=== PATIENT | female | born 1995 | race African-American/Black ===

== ENCOUNTER 2023-04-21 22:16 | Observation (INO) | payer MEDICAID ==
[2023-04-21] MEDS ORDERED: PREN-96 OR (22:41)
[2023-04-21] MEDS ORDERED: TERBUTALINE SULFATE 1 MG/ML 1ML VIAL SC ONE (23:39)
[2023-04-21] MEDS ORDERED: TERBUTALINE SULFATE 1 MG/ML 1ML VIAL SC SCH (23:45)
== END 2023-04-22 01:52 | disposition home or self-care (01) ==
LOC: LDRP 22:16
PROVIDERS: ADMIT Obstetrics & Gynecology; ATTEND Obstetrics & Gynecology
DX: O26.892 Other specified pregnancy related conditions, second trimester (principal); K59.00 Constipation, unspecified; R50.9 Fever, unspecified; R11.0 Nausea; Z91.040 Latex allergy status; Z3A.28 28 weeks gestation of pregnancy
CPT/HCPCS: 59025; 81002; 94760; 96372; G0378; J3105

== ENCOUNTER 2023-05-27 19:53 | Inpatient (IN) | payer MEDICAID ==
[~2023-05-27] VITALS: Ht 177.8 cm; Wt 90.7 kg
[~2023-05-27 19:53] MED LIST: PREN-96 OR
[2023-05-27] MEDS ORDERED: LACTATED RINGER'S 1,000 ML IV ONE (20:15)
[2023-05-27] MEDS ORDERED: NIFEdipine 10 MG CAP PO ONE (20:15)
[2023-05-27] MEDS ORDERED: MAGNESIUM SULFATE 100 ML IV ONE (20:30)
[2023-05-27] MEDS ORDERED: MAGNESIUM SULFATE 40MG/ML 1,000 ML IV SCH (20:30)
[2023-05-27] MEDS ORDERED: ceFAZolin 2 GM/D5W100ml 100 ML IV ONE (20:30)
[2023-05-27] MEDS ORDERED: BETAMETHASONE ACET (30mg/5ml) 5ml Vial 6mg/ml IM ONE (20:30)
[2023-05-27] MEDS ORDERED: BETAMETHASONE ACET (30mg/5ml) 5ml Vial 6mg/ml ONE (20:51)
[2023-05-27 20:55] LABS: Amphetamine Screen, Urine Neg (NEGATIVE)
[2023-05-27 20:56] LABS: Barbiturate Scree,Urine Neg (NEGATIVE); Benzodiazephine Screen, Urine Neg (NEGATIVE); Cannabinoid Screen, Urine Neg (NEGATIVE); Cocaine Screen, Urine Neg (NEGATIVE); Opiate Scree,Urine Neg (NEGATIVE); Phencyclidine Screen, Urine Neg (NEGATIVE)
[2023-05-27 21:19] LABS: Urine Bacteria NONE SEEN /hpf (None Seen); Urine Blood Negative /uL (Negative); Urine Clarity Clear (Clear); Urine Color Colorless (Yellow); Urine Protein, UAD Negative (Negative); Urine Specific Gravity 1.008 (1.001-1.035); Urine Urobilinogen Normal (Negative); Urine WBC 1 /hpf (0 - 5); Urine pH 6.5 (5.0-8.0)
[2023-05-27 21:39] LABS: Fern Testing Negative
[2023-05-28] MEDS ORDERED: ceFAZolin 1GM/50ML 50 ML IV SCH (04:30)
== END 2023-05-28 00:58 | disposition short-term general hospital (02) | DRG 566 ==
LOC: LDRP 19:53 → OBSVTOIN 20:50
PROVIDERS: ADMIT Obstetrics & Gynecology; ATTEND Obstetrics & Gynecology
DX: O60.03 Preterm labor without delivery, third trimester (principal); J45.909 Unspecified asthma, uncomplicated; O99.513 Diseases of the respiratory system complicating pregnancy, third trimester; Z3A.33 33 weeks gestation of pregnancy
CPT/HCPCS: 59025; 76805; 80307; 81001; 81002; 94760; 96360; 96361; 96365; 96366; 96372; G0378

== ENCOUNTER 2023-06-08 10:09 | Observation (INO) | payer MEDICAID ==
[2023-06-08] MEDS ORDERED: ACET-1881 PO (10:34)
[2023-06-08 11:39] LABS: Urine Bacteria NONE SEEN /hpf (None Seen); Urine Blood Negative /uL (Negative); Urine Clarity HAZY (Clear); Urine Color Yellow (Yellow); Urine Mucus FEW (None Seen); Urine Protein, UAD TRACE (Negative); Urine WBC 2 /hpf (0 - 5); Urine pH 6.5 (5.0-8.0)
[2023-06-08] MEDS ORDERED: ACET30TA15 PO (12:04)
== END 2023-06-08 12:38 | disposition home or self-care (01) ==
LOC: LDRP 10:09
PROVIDERS: ADMIT Obstetrics & Gynecology; ATTEND Obstetrics & Gynecology
DX: O47.03 False labor before 37 completed weeks of gestation, third trimester (principal); O62.9 Abnormality of forces of labor, unspecified; O26.893 Other specified pregnancy related conditions, third trimester; R10.30 Lower abdominal pain, unspecified; R11.0 Nausea; M54.9 Dorsalgia, unspecified; Z91.040 Latex allergy status; Z3A.35 35 weeks gestation of pregnancy
CPT/HCPCS: 59025; 81001; 81002; 94760; G0378

== ENCOUNTER → 2023-06-10 | Outpatient (CLI) | payer MEDICAID ==
[~2023-06-10] MED LIST changes: +ACET-1881 PO; +ACET30TA15 PO
[2023-06-10 09:49] LABS: Basophils # (auto) 0 10 ^3/uL (0-0.2); Basophils % (auto) 0.4 % (0.0-2.0); Eosinophils # (auto) 0.1 10 ^3/uL (0-0.8); Eosinophils % (auto) 1.3 % (0.0-7.0); Hematocrit 35.6 % (36.0-46.0); Hemoglobin 11.9 g/dL (12.2-16.2); Lymphocytes # (auto) 1.4 10 ^3/uL (0.4-5.4); Lymphocytes % (auto) 21.3 % (10.0-50.0); Mean Corpuscular Hemoglobin 28.8 pg (28.0-32.0); Mean Corpuscular Hgb Conc. 33.3 g/dL (32.0-36.0); Mean Corpuscular Volume 86.3 fL (80.0-100.0); Monocytes # (auto) 0.7 10 ^3/uL (0-1.3); Monocytes % (auto) 10.7 % (0.0-12.0); Neutrophils # (auto) 4.4 10 ^3/uL (1.6-8.6); Neutrophils % (auto) 66.3 % (37.0-80.0); Nucleated Red Blood Cells % 0.2 %; Red Blood Cells 4.13 10^6/uL (4.0-5.20); Red Cell Distribution Width 13.7 % (11.8-14.3); White Blood Cell 6.6 10^3/uL (4.4-10.8)
[2023-06-10 10:14] LABS: Alanine Aminotransferase 19 U/L (7-40); Albumin 3.8 g/dL (3.2-4.8); Alkaline Phosphatase 212 U/L (46-116); Anion Gap 7 (5-15); Aspartate Aminotransferase 27 U/L (13-40); BUN/Creatinine Ratio 10.9 (10.0-20.0); Bilirubin, Total 0.3 mg/dL (0.2-1.0); Blood Urea Nitrogen 6 mg/dL (9-23); Calcium 8.9 mg/dL (8.5-10.1); Carbon Dioxide 24 mmol/L (20-30); Chloride 109 mmol/L (98-107); Glucose 77 mg/dL (74-106); Sodium 140 mmol/L (136-145); Total Protein 6.8 g/dL (5.7-8.2)
[2023-06-11 07:06] LABS: RPR Non Reactive (Non Reactive)
[2023-06-11 23:06] LABS: Chlamydia Trachomatis, NAA Negative (Negative); Neisseria gonorrhoeae, NAA Negative (Negative)
== END | disposition home or self-care (01) ==
LOC: LAB 09:35
PROVIDERS: ATTEND Obstetrics & Gynecology
DX: Z34.80 Encounter for supervision of other normal pregnancy, unspecified trimester (principal); Z3A.00 Weeks of gestation of pregnancy not specified
CPT/HCPCS: 36415; 80053; 83036; 85025; 86592

== ENCOUNTER 2023-06-24 00:26 | Observation (INO) | payer MEDICAID ==
[~2023-06-24] VITALS: Ht 175.3 cm; Wt 111.1 kg
== END 2023-06-24 03:22 | disposition home or self-care (01) ==
LOC: LDRP 00:26
PROVIDERS: ADMIT Obstetrics & Gynecology; ATTEND Obstetrics & Gynecology
DX: O22.43 Hemorrhoids in pregnancy, third trimester (principal); O36.8130 Decreased fetal movements, third trimester, not applicable or unspecified; O26.893 Other specified pregnancy related conditions, third trimester; R11.0 Nausea; Z3A.37 37 weeks gestation of pregnancy
CPT/HCPCS: 76818; G0378; 59025; 81002; 94760

== ENCOUNTER 2023-07-05 01:21 | Observation (INO) | payer MEDICAID ==
[2023-07-05 03:10] LABS: Fern Testing Negative
== END 2023-07-05 03:55 | disposition home or self-care (01) ==
LOC: LDRP 01:21
PROVIDERS: ADMIT Obstetrics & Gynecology; ATTEND Obstetrics & Gynecology
DX: O62.9 Abnormality of forces of labor, unspecified (principal); O26.893 Other specified pregnancy related conditions, third trimester; N89.8 Other specified noninflammatory disorders of vagina; R10.9 Unspecified abdominal pain; Z3A.39 39 weeks gestation of pregnancy; Z91.040 Latex allergy status
CPT/HCPCS: 59025; 81002; 84112; 94762; G0378; Q0114

== ENCOUNTER 2023-07-09 22:08 | Inpatient (IN) | payer MEDICAID ==
[~2023-07-09] VITALS: Ht 175.3 cm; Wt 113.4 kg
[2023-07-09] MEDS ORDERED: miSOPROStol 100 mcg TAB SL PRN (22:30)
[2023-07-09] MEDS ORDERED: miSOPROStol 100 mcg TAB PR PRN (22:30)
[2023-07-09] MEDS ORDERED: BUTORPHANOL TARTRATE 2 MG/1 ML VIAL IV PRN ×2 (22:30)
[2023-07-09] MEDS ORDERED: METHYLERGONOVINE MALEATE 0.2 MG/ML AMP IM PRN (22:30)
[2023-07-09 22:41] LABS: Basophils # (auto) 0.1 10 ^3/uL (0-0.2); Basophils % (auto) 0.6 % (0.0-2.0); Eosinophils # (auto) 0.1 10 ^3/uL (0-0.8); Eosinophils % (auto) 0.9 % (0.0-7.0); Hematocrit 36.1 % (36.0-46.0); Hemoglobin 11.9 g/dL (12.2-16.2); Lymphocytes # (auto) 2.1 10 ^3/uL (0.4-5.4); Lymphocytes % (auto) 14.7 % (10.0-50.0); Mean Corpuscular Hemoglobin 27.7 pg (28.0-32.0); Mean Corpuscular Hgb Conc. 32.9 g/dL (32.0-36.0); Mean Corpuscular Volume 84.3 fL (80.0-100.0); Monocytes # (auto) 1.1 10 ^3/uL (0-1.3); Monocytes % (auto) 8.1 % (0.0-12.0); Neutrophils # (auto) 10.5 10 ^3/uL (1.6-8.6); Neutrophils % (auto) 75.7 % (37.0-80.0); Nucleated Red Blood Cells % 0.1 %; Red Blood Cells 4.28 10^6/uL (4.0-5.20); Red Cell Distribution Width 14.8 % (11.8-14.3); White Blood Cell 13.9 10^3/uL (4.4-10.8)
[2023-07-09] MEDS: LACTATED RINGER'S 1,000 ML IV SCH (22:51)
[2023-07-09 22:52] LABS: Urine Bacteria NONE SEEN /hpf (None Seen); Urine Blood Negative /uL (Negative); Urine Clarity HAZY (Clear); Urine Color Yellow (Yellow); Urine Mucus FEW (None Seen); Urine Protein, UAD 1+ (Negative); Urine Specific Gravity 1.034 (1.001-1.035); Urine WBC 16 /hpf (0 - 5)
[2023-07-09 22:54] LABS: Amphetamine Screen, Urine Neg (NEGATIVE); Barbiturate Scree,Urine Neg (NEGATIVE); Benzodiazephine Screen, Urine Neg (NEGATIVE)
[2023-07-09 22:55] LABS: Cannabinoid Screen, Urine Neg (NEGATIVE); Cocaine Screen, Urine Neg (NEGATIVE); Opiate Scree,Urine Neg (NEGATIVE); Phencyclidine Screen, Urine Neg (NEGATIVE)
[2023-07-09 22:58] LABS: Alanine Aminotransferase 14 U/L (7-40); Albumin 3.9 g/dL (3.2-4.8); Alkaline Phosphatase 290 U/L (46-116); Anion Gap 7 (5-15); Aspartate Aminotransferase 26 U/L (13-40); Bilirubin, Total 0.4 mg/dL (0.2-1.0); Blood Urea Nitrogen 7 mg/dL (9-23); Calcium 9.3 mg/dL (8.5-10.1); Carbon Dioxide 22 mmol/L (20-30); Chloride 108 mmol/L (98-107); Glucose 77 mg/dL (74-106); INR 1.04 (0.9-1.15); Partial Thromboplastin Time 28.2 SEC (24.5-34.5); Potassium 3.6 mmol/L (3.5-5.1); Prothrombin Time 10.9 sec (9.3-11.8); Sodium 137 mmol/L (136-145); Total Protein 6.9 g/dL (5.7-8.2)
[2023-07-10 01:48] LABS: Protein, Urine 32.4 mg/dL (0.0-11.9)
[2023-07-10 01:59] LABS: Creatinine, Urine 235.93 mg/dL (30.0-125.0); Urine Protein/Creatinine Ratio 0.14
[2023-07-10] MEDS: miSOPROStol 50 MCG per PRE-CUT 1/2 TAB PO PRN (02:41)
[2023-07-10] MEDS: TERBUTALINE SULFATE 1 MG/ML 1ML VIAL SC ONE ×2 (04:05→14:38)
[2023-07-10] MEDS ORDERED: NALOXONE HCL 0.4 MG/ML VIAL IV ONE (07:30)
[2023-07-10] MEDS: LACTATED RINGER'S 1,000 ML IV ONE (07:30)
[2023-07-10] MEDS ORDERED: LIDOCAINE HCL 2 %PF INJ 10ML AMP IJ ONE (07:45)
[2023-07-10] MEDS ORDERED: fentaNYL CITRATE 100 MCG/2 ML VL IV ONE (07:45)
[2023-07-10] MEDS ORDERED: TERBUTALINE SULFATE 1 MG/ML 1ML VIAL SC PRN (08:15)
[2023-07-10] MEDS: ePHEDrine SULFATE 50 MG/ML AMP IV ONE (08:50)
[2023-07-10] MEDS: ePHEDrine SULFATE 50 MG/ML AMP ONE (08:50)
[2023-07-10] MEDS: ROPIVACAINE HCL 200 ML ONE (09:10)
[2023-07-10] MEDS: DERMOPLAST 60ML BOTTLE TOP PRN (09:11)
[2023-07-10] MEDS: WITCH HAZEL-GLYCERIN PAD TOP PRN (09:11)
[2023-07-10] MEDS: PHISODERM TOP SOLN 240ML BTL TOP PRN (09:11)
[2023-07-10 09:40] VITALS: O2SAT 100
[2023-07-10] MEDS: ALBUTEROL SULF 2.5 MG/0.5ML(0.5%) NEB SOLN NEB ONE (09:40)
[2023-07-10] MEDS: IPRATROPIUM BROM 0.5 MG/2.5ML INH SOL NEB ONE (09:40)
[2023-07-10] MEDS: diphenhdrAMINE HCL 25 MG CAP PO ONE (10:07)
[2023-07-10] MEDS: LACT. RINGERS/OXYTOCIN 20UNITS 1,000 ML IV SCH (11:01)
[2023-07-10] MEDS: LACT. RINGERS/OXYTOCIN 20UNITS 500 ML IV ONE ×2 (15:38→16:19)
[2023-07-10] MEDS ORDERED: ONDANSETRON ODT 4 MG TAB PO PRN (16:45)
[2023-07-10] MEDS: IBUPROFEN 600 MG TAB PO PRN (17:18)
[2023-07-10] MEDS: LIDOCAINE 2%HCL (LOCAL ANESTH.) INJ 20ML MDV IJ PRN (18:14)
[2023-07-10 19:00] VITALS: BP 135/72; PULSE 104; RESP 17; TEMP 97.7; O2SAT 96
[2023-07-10 23:10] VITALS: BP 130/80; PULSE 89; RESP 18; TEMP 98.2; O2SAT 98
[2023-07-11] VITALS (8 sets, daily range): BP systolic 120–144; BP diastolic 61–89; PULSE 80–90; RESP 16–18; TEMP 97.9–98.9; O2SAT 97–98
[2023-07-11] MEDS: ACETAMINOPHEN 325 MG TAB PO PRN (00:05)
[2023-07-11] MEDS ORDERED: IBU600T PO (06:10)
[2023-07-11 08:06] LABS: RPR Non Reactive (Non Reactive)
[2023-07-13 19:06] LABS: Treponema pallidum Ab (FTA-Ab) Non Reactive (Non Reactive)
== END 2023-07-11 16:37 | disposition home or self-care (01) | DRG 560 ==
LOC: UNDOADMIN 22:08 → LDRP 22:08
PROVIDERS: ADMIT Obstetrics & Gynecology; ATTEND Obstetrics & Gynecology
PROC: 10D07Z6 Extraction of Products of Conception, Vacuum, Via Natural or Artificial Opening (ICD-10-PCS; principal; 2023-07-10)
PROC: 00HU33Z Insertion of Infusion Device into Spinal Canal, Percutaneous Approach (ICD-10-PCS; 2023-07-10)
PROC: 3E0R3BZ Introduction of Anesthetic Agent into Spinal Canal, Percutaneous Approach (ICD-10-PCS; 2023-07-10)
DX: O48.0 Post-term pregnancy (principal); Z37.0 Single live birth; O36.63X0 Maternal care for excessive fetal growth, third trimester, not applicable or unspecified; O36.8330 Maternal care for abnormalities of the fetal heart rate or rhythm, third trimester, not applicable or unspecified; O77.0 Labor and delivery complicated by meconium in amniotic fluid; Z3A.40 40 weeks gestation of pregnancy
CPT/HCPCS: 36415; 59025; 59409; 62282; 76818; 80053; 80307; 81001; 81002; 82570; 84156; 84550; 85025; 85610; 85730; 86592; 86850; 86900; 86901; 94640; 94760; 94762; 96360; 96361; 96365; 96366; 96372; G0378; J2590

== ENCOUNTER 2023-12-10 00:01 | Emergency (ER) | payer MEDICAID ==
[~2023-12-10] VITALS: Ht 175.3 cm; Wt 104.9 kg
[~2023-12-10 00:01] MED LIST changes: -ACET-1881 PO; -ACET30TA15 PO; +IBU600T PO
[2023-12-10 00:18] VITALS: BP 139/74; PULSE 86; RESP 17; TEMP 97.9; O2SAT 97
[2023-12-10 01:31] LABS: COVID19 ANTIGEN SOFIA FIA NEGATIVE (NEGATIVE); Rapid Influenza A Negative (Negative); Rapid Influenza B Negative (Negative)
[2023-12-10] MEDS ORDERED: AUG875T PO (02:39)
== END 2023-12-10 02:51 | disposition home or self-care (01) ==
LOC: ER 00:01
DX: B34.9 Viral infection, unspecified (principal); Z91.040 Latex allergy status; Z79.1 Long term (current) use of non-steroidal anti-inflammatories (NSAID); Z20.822 Contact with and (suspected) exposure to COVID-19
CPT/HCPCS: 36415; 87426; 87804